=== PATIENT | female | born 1995 | race Caucasian/White ===

== ENCOUNTER 2018-09-29 06:40 | Emergency (ER) | payer BC ==
[2018-09-29 07:19] VITALS: BP 140/83; TEMP 97.9; BMI 24.7
--- NOTE | 2018-09-29 07:24 | PDOC ---
History of Present Illness - General Chief Complaint: Palpitations Stated Complaint: PAIN Time Seen by Provider: 09/29/18 07:16 History Source: Patient Exam Limitations: No Limitations - History of Present Illness Initial Comments: 23 yo F w no reported pmh presents to the ER with chest discomfort after she drank multiple energy supplements last night. 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 She was tired during the evening so decided to take a 5 hour energy supplement. She was still tired so also then drank a red bull. Afterwards she drank the energy supplements her heart started racing and she began to experience minimal chest discomfort associated with shortness of breath and palpitations. The patient also states that her palms are clammy. She denies recent fevers, chills, or infections. LMP: ended 09/26. is regular, comes every 28 days and lasts for 7 days. - Sexually active with one male partner uses condoms for contraception. PCP: None PSH: None reported Social Hx: Drank 3 beers last night. 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 Denies smoking, cocaine or other substance usage. Allergies: NKA, NKDA Prior STD's: Chlamydia Past History - Past Medical History Allergies/Adverse Reactions: Allergies Allergy/AdvReac Type Severity Reaction Status Date / Time No Known Allergies Allergy Verified 09/29/18 07:10 Home Medications: Ambulatory Orders NK [No Known Home Medication] 09/29/18 COPD: No - Suicide/Smoking/Psychosocial Hx Smoking History: Current some day smoker Information on smoking cessation initiated: No Review of Systems - Review of Systems Able to Perform ROS?: Yes Comments:: CONSTITUTIONAL: Absent: fever, no chills, no fatigue EYES: Absent: visual changes ENT: Absent: ear pain, no sore throat CARDIOVASCULAR: Present: chest pain, palpitations RESPIRATORY: Present: SOB Absent: cough GI: Absent: abdominal pain, no nausea, no vomiting, no constipation, no diarrhea GENITOURINARY: Absent: dysuria, no frequency, no hematuria MUSKULOSKELETAL: Absent: back pain, no arthralgia, no myalgia SKIN: Absent: rash NEURO: Absent: headache *Physical Exam - Vital Signs Last Vital Signs Temp Pulse Resp BP Pulse Ox 97.9 F 113 H 18 140/83 100 09/29/18 07:08 09/29/18 07:08 09/29/18 07:08 09/29/18 07:08 09/29/18 07:08 - Physical Exam Comments: GENERAL: Well-appearing, well-nourished. No apparent distress. HEENT: Normocephalic, atraumatic. PERRL, EOM intact. CARDIOVASCULAR: Normal S1, S2. Tachy rate and regular rhythm. PULMONARY: No evidence of respiratory distress. Lungs clear to auscultation bilaterally. No wheezing, rales or rhonchi. ABDOMEN: Soft, non-distended, non-tender. EXTREMITIES: Normal ROM in all four extremities. No gross deformities. SKIN: Warm, dry. No rash NEUROLOGICAL: No focal neurological deficits. ED Treatment Course - LABORATORY CBC & Chemistry Diagram: 09/29/18 07:59 09/29/18 07:59 Medical Decision Making - Medical Decision Making 23 yo F w no reported pmh presents to the ER with chest discomfort after she drank multiple energy supplements last night. 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 She was tired during the evening so decided to take a 5 hour energy supplement. She was still tired so also then drank a red bull. Afterwards she drank the energy supplements her heart started racing and she began to experience minimal chest discomfort associated with shortness of breath and palpitations. The patient also states that her palms are clammy. VS: Tachycardic DDx IBNLT: energy supplement related effect, acs/mi, pneumothorax, Plan: Labs, ekg, cxr, ativan, iv hydration, hcg, re-assess. - Patient has a hx of chlamydia which was treated in the past. She requests to be tested again for GC/CT. - GC/CT culture sent. Patient informed she will receive a call back if positive. - Potassium noted to be mildly low - will replete orally - Labs show no elevation in troponin or other electrolyte abnormalities. - Patient feels better after IV hydration and ativan. Will Send home and give her a PCP to follow up with. *DC/Admit/Observation/Transfer Diagnosis at time of Disposition: Chest pain, Palpitations - Discharge Dispostion Disposition: HOME Condition at time of disposition: Improved Decision to Admit order: No - Referrals Referrals: [facility] [place] [Provider Group] - Patient Instructions Printed Discharge Instructions: DI for Palpitations, DI for Atypical Chest Pain Additional Instructions: You came into the ER with chest discomfort and palpitations. We did some tests and determined that you did not have a heart attack. The likely cause of your chest discomfort was from the energy drinks you consumed last night. Please do not mix these energy drinks with alcohol and please do not have more than one on any given evening. Come back to the ER if your pain worsens or you have any other new or worsening concerns. Please make sure to call up the [facility] clinic and schedule an appointment to establish care and get a primary care physician. We did a cervical swab for gonorrhea and chlamydia. You will get a call back regarding the results. Thank you for coming to the [facility] ER. We hope you feel better soon! Print Language: BURUNDIAN - Post Discharge Activity
[2018-09-29] MEDS ORDERED: SODIUM CHLORIDE 0.9% 500 ML INFUS.BAG IV ONE (07:28)
[2018-09-29] MEDS ORDERED: LORazepam 1 MG TABLET PO ONE (07:30)
--- NOTE | 2018-09-29 07:32 | PDOC ---
Attending Attestation - Resident Resident Name: Jose L Trotter - ED Attending Attestation I have performed the following: I have examined & evaluated the patient, The case was reviewed & discussed with the resident, I agree w/resident's findings & plan, Exceptions are as noted - HPI HPI: 09/29/18 07:27 23 yo F with no pmhx here with c/o palpitations, tachycardia after drinking two energy drinks last night. was also c/o feeling chest pain and sob. no f/c no leg swelling. no h/o pe or dvt. 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 no drug use or other medications. - Physicial Exam PE: 09/29/18 07:30 awake alert lungs clear bilaterally heart reg tachycardia. no mrg abd soft nt nd ext wwp no edema. no calf tenderness. . - Medical Decision Making 09/29/18 07:31 23 yo F with c/o palpitations, racing heart and sob after taking energy supplements and red bull. tony bull tox, differential includes dehdyration, other intox ( although no signs clinically), anemia, electrolyte abnoramlity juarez ivf, benzo, labs. reassess. 09/29/18 09:28 pt states she feeling better, will dc home. gc/ chlamydia sent per request. ucg negative. noted for mild hypokalemia, given 40 meq potassium. Heart Score/ECG Review #1 General ECG Interpretation: Sinus Rhythm, Normal Intervals, No acute ischemic changes Compared to previous ECG there are: Other (sinus tachycardia TWI V1 - V3)
[2018-09-29] MEDS ORDERED: LORazepam 0.5 MG TABLET ONE (07:39)
[2018-09-29 08:36] LABS: BASO % 0.5 % (0-2.0); HEMATOCRIT 43.2 % (32.4-45.2); HEMOGLOBIN 14.3 GM/dL (10.7-15.3); LYMPH % 28.9 % (8-40); MCH 29.2 pg (25.7-33.7); MCHC 33.1 g/dl (32.0-36.0); MEAN CELL VOLUME 88.3 fl (80-96); MEAN PLT VOLUME 11.8 fl (7.5-11.1); MONO % 6.1 % (3.8-10.2); NEUT % 63.5 % (42.8-82.8); PLATELET COUNT 230 K/MM3 (134-434)
[2018-09-29 09:02] VITALS: PULSE 88
[2018-09-29 09:04] LABS: ALBUMIN 4.7 g/dl (3.4-5.0); ALK PHOS 69 U/L (45-117); ANION GAP 9 MMOL/L (8-16); BILIRUBIN,TOTAL 0.4 mg/dL (0.2-1); BLOOD UREA NITROGEN 10 mg/dL (7-18); CALCIUM 9.6 mg/dL (8.5-10.1); CHLORIDE 99 mmol/L (98-107); CO2 28 mmol/L (21-32); CREATININE 0.7 mg/dL (0.55-1.3); GLUCOSE,RANDOM 77 mg/dL (74-106); POTASSIUM 3.3 mmol/L (3.5-5.1); SGOT/AST 15 U/L (15-37); SGPT/ALT 22 U/L (13-61); SODIUM 136 mmol/L (136-145); TOT PROT 8.6 g/dl (6.4-8.2)
[2018-09-29] MEDS ORDERED: POTASSIUM CHLORIDE ORAL LIQUID 20 MEQ/15 ML PO ONE (09:12)
[2018-09-29] MEDS ORDERED: POTASSIUM CHLORIDE TABS 20 MEQ TABLET.ER (FP) PO ONE (09:16)
--- NOTE | 2018-10-01 10:37 | EKG ---
Test Reason : Blood Pressure : / mmHG Vent. Rate : 098 BPM Atrial Rate : 098 BPM P-R Int : 164 ms QRS Dur : 092 ms QT Int : 348 ms P-R-T Axes : 067 056 035 degrees QTc Int : 444 ms NORMAL SINUS RHYTHM POSSIBLE LEFT ATRIAL ENLARGEMENT BORDERLINE ECG NO PREVIOUS ECGS AVAILABLE Confirmed by IMTIAZ TRUONG, LANNY (2013) on 10/01/2018 10:37:12 AM Referred By: Confirmed By:LANNY KITCHEN MD
== END 2018-09-29 10:03 | disposition home or self-care (01) ==
LOC: JER 06:40
DX: R07.9 Chest pain, unspecified (principal); R00.2 Palpitations; Z11.3 Encounter for screening for infections with a predominantly sexual mode of transmission; Z86.19 Personal history of other infectious and parasitic diseases
CPT/HCPCS: 36415; 71046-TC-FY; 80053; 83735; 84484; 84703; 85025; 87110; 87491; 87591; 87661; 93005; 93010; 99285-25